=== PATIENT | male | born 1960 | race Two or more races ===

== ENCOUNTER → 2017-02-02 | Outpatient (CLI) | payer BC ==
[2016-01-09 11:00] VITALS: BP 107/63
== END | disposition home or self-care (01) ==
LOC: LAB 12:23
PROVIDERS: ATTEND Urology
DX: Z12.5 Encounter for screening for malignant neoplasm of prostate (principal); C64.9 Malignant neoplasm of unspecified kidney, except renal pelvis; M05.79 Rheumatoid arthritis with rheumatoid factor of multiple sites without organ or systems involvement; Z79.899 Other long term (current) drug therapy
CPT/HCPCS: 36415; G0103

== ENCOUNTER → 2017-03-12 | Outpatient (CLI) | payer BC ==
[2016-01-09 11:00] VITALS: BP 107/63
[~2017-03-12] MED LIST: CONTRAST GIVEN MC PRN; IOHEXOL 240 MG/ML 50ML VIAL. PO ONE; IOHEXOL 300 MG/ML 75 ML VIAL IV ONE
--- NOTE | 2017-03-12 11:47 | RAD ---
Indication clear similar carcinoma. Follow-up. Staging. Axial images of the chest abdomen and pelvis were obtained. Both oral and IV contrast were administered. Approximately 75 cc of Omnipaque 300 was administered intravenously. Note is made to previous imaging 11/06/2016. CT chest: Findings. The thoracic aorta appears unremarkable. No significant hilar or mediastinal adenopathy is seen. An acute finding in the chest is not seen. There is no evidence of metastatic disease. CT abdomen and pelvis: Findings. The liver and spleen appear unremarkable. The gallbladder appears grossly normal. No pancreatic abnormality is seen. The patient is status post right nephrectomy. The left kidney is normal. There is no significant adenopathy seen. An acute finding is not apparent. Evidence of recurrent or metastatic disease is not seen. In the pelvis no mass is seen. There is no evidence of metastatic disease. An acute finding is not seen. IMPRESSION: No acute finding seen in the chest, abdomen or pelvis. No evidence of tumor recurrence or metastatic disease PQRS Compliance Statement: One or more of the following individualized dose reduction techniques were utilized for this examination: 1. Automated exposure control 2. Adjustment of the mA and/or kV according to patient size 3. Use of iterative reconstruction technique
== END | disposition home or self-care (01) ==
LOC: CT 08:12
PROVIDERS: ATTEND Internal Medicine Hematology & Oncology
DX: C64.9 Malignant neoplasm of unspecified kidney, except renal pelvis (principal); Z90.5 Acquired absence of kidney
CPT/HCPCS: 71260; 74177

== ENCOUNTER → 2017-09-11 | Outpatient (CLI) | payer BC ==
[2016-01-09 11:00] VITALS: BP 107/63
[~2017-09-11] MED LIST changes: -CONTRAST GIVEN MC PRN
[2017-09-11 09:26] LABS: CREATININE 1.1 mg/dL (0.7-1.3); GFR 69.2
--- NOTE | 2017-09-11 11:43 | RAD ---
Indication: Right renal cell carcinoma. Technique: Axial images and coronal and sagittal reformatted images are provided. Oral contrast and 75 mL of intravenous Omnipaque 300 was administered without complication. Comparison is from March 12, 2017. One or more of the following individualized dose reduction techniques were utilized for this examination: 1. Automated exposure control 2. Adjustment of the mA and/or kV according to patient size 3. Use of iterative reconstruction technique Findings: Chest: There is linear atelectasis in the right lung base. There is no consolidation. There is no worrisome pulmonary nodule. There is no pleural effusion. Central airways are patent. There is no hilar or mediastinal adenopathy. The heart is not enlarged. Central airways are patent. There are minimal degenerative changes in the spine. There is no destructive bone lesion. Abdomen: There is no hepatic lesion. Gallbladder is unremarkable. Spleen is not enlarged. Pancreas and the left adrenal are unremarkable. Right adrenal is probably visualized as well, within normal limits. Right kidney is absent. There is a 5 mm lesion arising from the lower pole of the left kidney, too small to characterize, could represent a small cyst. No additional left renal mass is apparent. Aorta is normal caliber. There is no mesenteric or retroperitoneal adenopathy. There is no abnormal soft tissue in the right renal bed. Colon is unremarkable. Pelvis: Bladder is unremarkable. Prostate calcification is noted. There are minimal degenerative changes in the spine. Impression: 1. No acute thoracic findings. 2. Right nephrectomy. 3. No evidence of metastatic disease. No evidence of local recurrence. 4. Stable 5 mm lesion arising from the lower pole of the left kidney, too small to characterize. Continued surveillance is recommended.
== END | disposition home or self-care (01) ==
LOC: CT 07:52
PROVIDERS: ATTEND Internal Medicine Hematology & Oncology
DX: C64.1 Malignant neoplasm of right kidney, except renal pelvis (principal); J98.11 Atelectasis; Z90.5 Acquired absence of kidney
CPT/HCPCS: 36415; 71260; 74177; 82565; Q9966; Q9967

== ENCOUNTER → 2018-03-12 | Outpatient (CLI) | payer BC ==
[~2018-03-12] MED LIST changes: +CONTRAST GIVEN MC; -IOHEXOL 240 MG/ML 50ML VIAL. PO ONE; -IOHEXOL 300 MG/ML 75 ML VIAL IV ONE
[2018-03-12 09:05] LABS: BLOOD UREA NITROGEN 15 mg/dL (8-26)
[2018-03-12] MEDS: IOHEXOL 300 MG/ML 100ML VIAL. IV (09:18)
[2018-03-12] MEDS: IOHEXOL 240 MG/ML 50ML VIAL. PO (09:18)
== END | disposition home or self-care (01) ==
LOC: CT 07:39
DX: C64.1 Malignant neoplasm of right kidney, except renal pelvis (principal); Z87.891 Personal history of nicotine dependence
CPT/HCPCS: 36415; 71260; 74177; 82565; 84520; Q9966; Q9967

== ENCOUNTER → 2018-09-10 | Outpatient (CLI) | payer BC ==
[2016-01-09 11:00] VITALS: BP 107/63
[~2018-09-10] MED LIST changes: -CONTRAST GIVEN MC; +CONTRAST GIVEN. MC PRN; +IOHEXOL 240 MG/ML 50ML VIAL. PO ONE; +IOHEXOL 300 MG/ML 100ML VIAL. IV ONE
[2018-09-10 09:37] LABS: CALCIUM 9.3 mg/dL (8.5-10.1); POTASSIUM 4.1 mmol/L (3.5-5.1); TOTAL BILIRUBIN 0.7 mg/dL (0.2-1.0); TOTAL PROTEIN 8.2 g/dL (6.4-8.2)
--- NOTE | 2018-09-10 10:58 | RAD ---
CT chest abdomen pelvis with contrast Indication: Renal cell carcinoma Technique: Postcontrast CT imaging was performed of the chest, abdomen, pelvis, multiplanar reconstruction images submitted. Oral contrast was also given. One or more of the following individualized dose reduction techniques were utilized for this examination: 1. Automated exposure control 2. Adjustment of the mA and/or kV according to patient size 3. Use of iterative reconstruction technique. Contrast: 75 cc Omnipaque 300 Comparison: March 12, 2018; September 11, 2017 CHEST: Findings: There are 2 new adjacent small left lower lobe pulmonary nodules axial images 37 series 2 each on the order of about 3 to 4 mm in size. There is no new significant lymphadenopathy of the chest. There is no pleural or pericardial effusion, pneumothorax, infiltrate. There is thoracic spondylosis. Major airways are patent. IMPRESSION: 1. There are 2 new small adjacent left lower lobe pulmonary nodules each on the order of 3 to 4 mm in size for which attention on follow-up advised. There is no new significant lymphadenopathy of the chest. Abdomen pelvis: FINDINGS: There again has been right nephrectomy, no new mass of the right renal fossa. Left kidney enhances without hydronephrosis. Small exophytic lesion of the inferior left kidney about 0.5 cm is stable. There is no new adrenal nodularity. There is no new focal abnormality of the liver, spleen, pancreas, gallbladder. Bowel is not significantly dilated. There is no free air or free fluid. There is mild colonic diverticulosis without associated inflammatory change. Prostate gland is borderline enlarged. No new significant lymphadenopathy is identified. No new focal bone lesion is identified. IMPRESSION: 1. Small exophytic hypodense lesion of the inferior left kidney is stable. 2. There is no new lymphadenopathy or other evidence of metastatic disease to the abdomen or pelvis. 3. There is mild colonic diverticulosis. Electronically signed by: Louis Byrd MD (09/10/2018 10:55 AM) [id number]
== END | disposition home or self-care (01) ==
LOC: CT 07:46
PROVIDERS: ATTEND Internal Medicine Hematology & Oncology
DX: C64.1 Malignant neoplasm of right kidney, except renal pelvis (principal); K57.30 Diverticulosis of large intestine without perforation or abscess without bleeding; M47.814 Spondylosis without myelopathy or radiculopathy, thoracic region
CPT/HCPCS: 36415; 71260; 74177; 80053; Q9966; Q9967

== ENCOUNTER → 2018-10-08 | Outpatient (CLI) | payer BC ==
[2016-01-09 11:00] VITALS: BP 107/63
[2018-10-08 15:13] LABS: BILIRUBIN,URINE NEGATIVE (NEG); CLARITY,URINE CLEAR; COLOR,URINE YELLOW; NITRITE,URINE NEGATIVE (NEG); PH,URINE 6.5; PROTEIN,URINE NEGATIVE (NEG-TRACE); UROBILINOGEN,URINE 0.2 mg/dL (0.2 mg/dL)
[2018-10-08 15:15] LABS: CALCIUM 8.8 mg/dL (8.5-10.1); CREATININE 1.2 mg/dL (0.7-1.3); GFR 62.4; URIC ACID 4.8 mg/dL (3.5-7.2)
[2018-10-08 16:45] LABS: BACTERIA,URINE 0 /HPF (0-FEW); RBC,URINE 0 /HPF (0-2); SQUAMOUS EPITHELIAL CELL,UR OCC /LPF; WBC,URINE 0 /HPF (0-4)
[2018-10-08 23:12] LABS: CREAT RD UR 62.5 mg/dL (Not Estab.); MICRO CREAT RATIO 7.5 mg/g creat (0.0-30.0); MICROALB RD UR 4.7 ug/mL (Not Estab.); POTASSIUM UR 30.7 mmol/L (Not Estab.)
== END | disposition home or self-care (01) ==
LOC: LAB 14:05
PROVIDERS: ATTEND Internal Medicine Nephrology
DX: E87.1 Hypo-osmolality and hyponatremia (principal); Z68.32 Body mass index [BMI] 32.0-32.9, adult
CPT/HCPCS: 36415; 80048; 81001; 82043; 82436; 82570; 83930; 83935; 84133; 84300; 84443; 84550

== ENCOUNTER → 2019-01-13 | Outpatient (CLI) | payer BC ==
[2016-01-09 11:00] VITALS: BP 107/63
[2019-01-13 17:26] LABS: CALCIUM 8.8 mg/dL (8.5-10.1); CREATININE 1.2 mg/dL (0.7-1.3); GFR 62.2
== END | disposition home or self-care (01) ==
LOC: LAB 16:22
PROVIDERS: ATTEND Internal Medicine Nephrology
DX: E87.1 Hypo-osmolality and hyponatremia (principal); Z68.32 Body mass index [BMI] 32.0-32.9, adult
CPT/HCPCS: 36415; 80048